=== PATIENT | female | born 1995 | race Caucasian/White ===

== ENCOUNTER 2017-10-30 11:04 | Emergency (ER) | payer MEDICAID ==
[~2017-10-30] VITALS: Ht 157.5 cm; Wt 40.8 kg
[2017-10-30 11:05] VITALS: BP_SYST 88
[2017-10-30] MEDS ORDERED: IBUPROFEN 400 MG TABLET PO ONE (14:00)
[2017-10-30 14:11] VITALS: BP_SYST 121
== END 2017-10-30 14:09 | disposition home or self-care (01) ==
LOC: SED 11:04
DX: O9A.212 Injury, poisoning and certain other consequences of external causes complicating pregnancy, second trimester (principal); S09.90XA Unspecified injury of head, initial encounter; Z3A.18 18 weeks gestation of pregnancy; W01.0XXA Fall on same level from slipping, tripping and stumbling without subsequent striking against object, initial encounter; Y93.89 Activity, other specified; Y92.89 Other specified places as the place of occurrence of the external cause; Y99.8 Other external cause status
CPT/HCPCS: 70450-TC; 70486-TC; 99284